=== PATIENT | female | born 1990 | race Caucasian/White ===

== ENCOUNTER 2017-02-25 11:33 | Emergency (ER) | payer OTHER ==
[~2017-02-25] VITALS: Ht 172.7 cm; Wt 74.8 kg
[~2017-02-25 11:33] MED LIST: ACET50TA PO; COLA100C3 PO; PRENTAB9 PO
[2017-02-25 12:09] LABS: MEAN CORPUSCULAR HEMOGLOBIN 29.6 pg (27.0-33.0); MEAN CORPUSCULAR VOLUME 84.5 fl (80.0-96.0); RED CELL DISTRIBUTION WIDTH 12.3 % (11.5-14.5)
[2017-02-25] MEDS ORDERED: ACETAMINOPHEN TAB 650MG DOSE (2X325MG) PO ONE (12:45)
--- NOTE | 2017-02-25 14:36 | REP ---
Clinical: Vaginal bleeding . Technique: Transabdominal pelvic ultrasound followed by transvaginal examination for better evaluation of the endometrium and adnexa with color Doppler evaluation of the ovaries. Findings: Bladder is unremarkable and measures 6.5 x 3.5 x 8.7 cm . Normal anteverted uterus measures 10.8 x 5.0 x 5.7 cm . The endometrial complex measures 8.1 mm thickness and small amount of hemorrhagic debris are suggested within the endocervical canal. No discrete uterine or endometrial abnormalities are appreciated. No evidence for intrauterine . Bilateral maternal ovaries are normal in appearance and vascularity without evidence for torsion. Right ovary measures 3.0 x 2.0 x 2.9 cm ; R I = 0.57 . Left ovary measures 2.4 x 2.4 x 2.9 cm ; R I = 0.53 with 1.3 cm and 1.8 cm adnexal cysts. No pelvic fluid or adnexal mass lesion. Impression: 1. No intrauterine is appreciated and small amount of hemorrhagic debris is noted in the endocervical canal suggesting spontaneous . Differential diagnosis would include early and less likely ectopic . Correlation with serial HCG levels recommended. Signed by Parker Mcgarry MD 02/25/2017 02:28 P
[2017-02-25 15:06] VITALS: BP 114/70
== END 2017-02-25 15:18 | disposition home or self-care (01) ==
LOC: M ED 12:55
DX: O03.9 Complete or unspecified spontaneous abortion without complication (principal); Z3A.00 Weeks of gestation of pregnancy not specified; Z87.59 Personal history of other complications of pregnancy, childbirth and the puerperium; O99.89 Other specified diseases and conditions complicating pregnancy, childbirth and the puerperium; N80.9 Endometriosis, unspecified; O99.331 Smoking (tobacco) complicating pregnancy, first trimester; Z79.899 Other long term (current) drug therapy

== ENCOUNTER 2017-04-01 18:38 | Emergency (ER) | payer OTHER ==
[~2017-04-01] VITALS: Ht 172.7 cm; Wt 79.3 kg
[~2017-04-01 18:38] MED LIST changes: -COLA100C3 PO; +COLA100C5 PO
[2017-04-01] MEDS ORDERED: NS 1,000 ML IV ONE (19:00)
[2017-04-01 19:36] LABS: BASO % 0.4 % (0.0-1.0); EOS # 0.2 K/mm3 (0.0-0.50); EOS % 1.8 % (0.0-3.0); LARGE UNSTAINED CELL # 0.2 K/mm3 (0.0-0.4); LARGE UNSTAINED CELL % 2.1 % (0.0-4.0); LYMPH # 3.2 K/mm3 (1.5-6.5); LYMPH % 28.1 % (24.0-44.0); MEAN CORPUSCULAR HEMOGLOBIN 29.5 pg (27.0-33.0); MEAN CORPUSCULAR HGB CONC 34.9 g/dl (32.0-36.5); MEAN CORPUSCULAR VOLUME 84.4 fl (80.0-96.0); MONO # 0.4 K/mm3 (0.0-0.8); MONO % 3.6 % (0.0-5.0); NEUTROPHILS # 6.8 K/mm3 (1.8-7.7); PLATELET COUNT, AUTOMATED 306 k/mm3 (150-450); RED CELL DISTRIBUTION WIDTH 13.3 % (11.5-14.5); WHITE BLOOD COUNT 10.6 K/mm3 (4.0-10.0)
[2017-04-01 19:56] LABS: ANION GAP 8 MEQ/L (8-16); BLOOD UREA NITROGEN 15 MG/DL (7-18); CALCIUM LEVEL 8.4 MG/DL (8.5-10.1); CARBON DIOXIDE LEVEL 24 MEQ/L (21-32); CHLORIDE LEVEL 107 MEQ/L (98-107); CREATININE FOR GFR 0.87 MG/DL (0.55-1.02); GLOMERULAR FILTRATION RATE > 60.0 (>60); GLUCOSE, FASTING 94 MG/DL (70-105); HCG, SERUM QUANTITATIVE < 1.0 MIU/ML; POTASSIUM SERUM 4.1 MEQ/L (3.5-5.1); SODIUM LEVEL 139 MEQ/L (136-145)
[2017-04-01 20:58] VITALS: BP 111/77
== END 2017-04-01 21:00 | disposition home or self-care (01) ==
LOC: M ED 18:38
DX: N93.8 Other specified abnormal uterine and vaginal bleeding (principal); N80.9 Endometriosis, unspecified; F17.210 Nicotine dependence, cigarettes, uncomplicated

== ENCOUNTER 2017-09-04 12:01 | Emergency (ER) | payer OTHER ==
[~2017-09-04] VITALS: Ht 172.7 cm; Wt 79.1 kg
[2017-09-04] MEDS ORDERED: PRENCHW PO (12:07)
[2017-09-04 15:45] VITALS: BP 109/74
== END 2017-09-04 15:50 | disposition home or self-care (01) ==
LOC: M ED 12:01
DX: O26.892 Other specified pregnancy related conditions, second trimester (principal); R10.9 Unspecified abdominal pain; Z3A.19 19 weeks gestation of pregnancy

== ENCOUNTER 2017-10-24 19:12 | Emergency (ER) | payer OTHER ==
[2017-10-24 21:18] LABS: KETONE, URINE AUTO RFX NEGATIVE (NEGATIVE); MUCUS, URINE RFX SMALL (NEGATIVE); NITRITE, URINE AUTO RFX NEGATIVE (NEGATIVE); RBC, URINE AUTO RFX 1 /HPF (0-3); SPECIFIC GRAVITY UR AUTO RFX 1.012 (1.002-1.035); SQUAM EPITHELIAL CELL UR AURFX 0 /HPF (0-6); WBC, URINE AUTO RFX 1 /HPF (0-3)
[2017-10-24 21:24] LABS: LEUKOCYTE ESTERASE UR AUTO RFX TRACE (NEGATIVE)
== END 2017-10-24 22:40 | disposition home or self-care (01) ==
LOC: M ED 19:12
DX: O99.89 Other specified diseases and conditions complicating pregnancy, childbirth and the puerperium (principal); R10.9 Unspecified abdominal pain; V89.2XXA Person injured in unspecified motor-vehicle accident, traffic, initial encounter; Y92.410 Unspecified street and highway as the place of occurrence of the external cause; Z3A.27 27 weeks gestation of pregnancy; Z79.899 Other long term (current) drug therapy
CPT/HCPCS: 76811

== ENCOUNTER 2018-01-16 13:21 | Outpatient (CLI) | payer OTHER | END 2018-01-16 17:34 | disposition home or self-care (01) | LOC: M LDO 13:21 | DX: O47.1 False labor at or after 37 completed weeks of gestation (principal); Z3A.38 38 weeks gestation of pregnancy | CPT/HCPCS: 59025 ==

== ENCOUNTER 2018-01-21 15:11 | Outpatient (CLI) | payer OTHER | END 2018-01-21 18:25 | disposition home or self-care (01) | LOC: M LDO 15:11 | DX: O47.1 False labor at or after 37 completed weeks of gestation (principal); Z3A.38 38 weeks gestation of pregnancy | CPT/HCPCS: 59025 ==

== ENCOUNTER 2018-01-22 07:49 | Outpatient (CLI) | payer OTHER | END 2018-01-22 09:11 | disposition home or self-care (01) | LOC: M LDO 07:49 | DX: O47.1 False labor at or after 37 completed weeks of gestation (principal); Z3A.39 39 weeks gestation of pregnancy | CPT/HCPCS: 59025 ==

== ENCOUNTER 2018-02-14 22:27 | Emergency (ER) | payer OTHER ==
[2018-02-14 23:04] LABS: HEMATOCRIT 35.8 % (36.0-47.0); HEMOGLOBIN 12.2 g/dl (12.0-15.5); MEAN CORPUSCULAR HGB CONC 34.1 g/dl (32.0-36.5); PLATELET COUNT, AUTOMATED 332 10^3/uL (150-450); RED BLOOD COUNT 4.07 10^6/uL (4.00-5.40); RED CELL DISTRIBUTION WIDTH 13.4 % (11.5-14.5); WHITE BLOOD COUNT 10.7 10^3/uL (4.0-10.0)
== END 2018-02-15 00:57 | disposition home or self-care (01) ==
LOC: M ED 02-15 00:57
DX: O72.1 Other immediate postpartum hemorrhage (principal); Z79.899 Other long term (current) drug therapy
CPT/HCPCS: 85027